=== PATIENT | male | born 1965 | race Caucasian/White ===

== ENCOUNTER 2016-10-22 16:23 | Emergency (ER) | payer OTHER ==
[2016-10-22 16:28] VITALS: TEMP 97
[2016-10-22] MEDS ORDERED: KETOROLAC 60 MG/2 ML VIAL IM STA (17:48)
[2016-10-22] MEDS ORDERED: HYDROmorphone 1 MG/ML 1 ML SYRINGE IM STA (17:48)
--- NOTE | 2016-10-22 18:31 | XR ---
EXAMINATION TYPE: XR KUB DATE OF EXAM: 10/22/2016 COMPARISON: NONE HISTORY: Left flank pain with history of nephrolithiasis. TECHNIQUE: Single frontal upright radiograph was obtained. FINDINGS: Bowel gas obscures the left renal shadow and no left renal calculi are therefore appreciate d. An approximately 7 mm probable right renal calculus is seen at the level of the right L3 transvers e process as well as smaller 5 mm and 4 mm right renal calculi versus overlying bowel contents. Bowel gas pattern is nonobstructive. No gross evidence of organomegaly. Osseous structures appear intact. IMPRESSION: 1. Three probable right renal calculi. 2. Nonvisualization of the left renal shadow due to overlying bowel gas. 3. Nonobstructive bowel gas pattern.
--- NOTE | 2016-10-22 18:32 | ED ---
General Adult HPI - General Chief complaint: Abdominal Pain Stated complaint: Abd Pain Time Seen by Provider: 10/22/16 17:30 Source: patient, RN notes reviewed Mode of arrival: wheelchair Limitations: no limitations - History of Present Illness Initial comments: Patient is a 51-year-old male with significant past medical history for kidney stones, who presents emergency room today with chief complaint of increased flank pain over the last 2 weeks. He does admit the pain has been increasing over the last few days. States that he has seen his family doctor most recently earlier this morning and had some blood work obtained. Patient does admit that he's had multiple stones in the past and this does feel similar. Denies any other complaints or symptoms. Patient denies any recent fever, chills , shortness of breath, chest pain, nausea or vomiting, numbness or tingling, constipation or diarrhea, headaches or visual changes, or any other complaints. - Related Data Home Medications Medication Instructions Recorded Confirmed ALPRAZolam [Xanax] 1 mg PO TID PRN 10/22/16 10/22/16 Tamsulosin [Flomax] 0.4 mg PO DAILY 10/22/16 10/22/16 oxyCODONE-APAP 10-325MG [Percocet 1 tab PO QID PRN 10/22/16 10/22/16 10-325 mg] Previous Rx's Medication Instructions Recorded Ciprofloxacin HCl [Cipro] 500 mg PO Q12HR #20 day 10/22/16 Allergies Allergy/AdvReac Type Severity Reaction Status Date / Time No Known Allergies Allergy Verified 10/22/16 19:10 Review of Systems ROS Statement: Those systems with pertinent positive or pertinent negative responses have been documented in the HPI. ROS Other: All systems not noted in ROS Statement are negative. Past Medical History Additional Past Medical History / Comment(s): kidney stones History of Any Multi-Drug Resistant Organisms: None Reported Additional Past Surgical History / Comment(s): lithotripsy kidney stone removal Past Psychological History: Anxiety Smoking Status: Current every day smoker Past Alcohol Use History: None Reported Past Drug Use History: Marijuana General Exam - General Exam Comments Initial Comments: General: The patient is awake and alert, in no distress, and does not appear acutely ill. Eye: Pupils are equal, round and reactive to light, extra-ocular movements are intact. No nystagmus. There is normal conjunctiva bilaterally. No signs of icterus. Ears, nose, mouth and throat: There are moist mucous membranes and no oral lesions. Neck: The neck is supple, there is no tenderness or JVD. Cardiovascular: There is a regular rate and rhythm. No murmur, rub or gallop is appreciated. Respiratory: Lungs are clear to auscultation, respirations are non-labored, breath sounds are equal. No wheezes, stridor, rales, or rhonchi. Gastrointestinal: Normal. 7. Normal bowel sounds. Soft on palpation. Patient has no tenderness in the abdomen. Mild tenderness in both left and right CVA. No rebound tenderness. No Guarding Musculoskeletal: Normal ROM, no tenderness. Strength 5/5. Sensation intact. Pulses equal bilaterally 2+. Neurological: A&O x 3. CN II-XII intact, There are no obvious motor or sensory deficits. Coordination appears grossly intact. Speech is normal. Skin: Skin is warm and dry and no rashes or lesions are noted. Psychiatric: Cooperative, appropriate mood & affect, normal judgment. Limitations: no limitations Course Vital Signs 10/22/16 16:26 Temperature 97.0 F L Pulse Rate 110 H Respiratory 18 Rate Blood Pressure 132/76 O2 Sat by Pulse 99 Oximetry Medical Decision Making - Medical Decision Making Patient's x-ray reviewed and does show evidence for multiple stones. Results were discussed with the patient. His urinalysis reviewed and does show evidence for possible infection. Patient will be started on antibiotic. He does have pain medication, Flomax at home that he can use for his symptoms. He is advised follow-up the urologist over the next 1-2 days. Advised return if any symptoms increase or worsen or for any other concerns. He states understanding and is in agreement. - Lab Data Lab Results 10/22/16 Range/Units 19:07 Urine Color Yellow Urine Appearance Clear (Clear) Urine pH 5.5 (5.0-8.0) Ur Specific [place] 1.018 (1.001-1.035) Urine Protein Trace H (Negative) Urine Glucose (UA) Negative (Negative) Urine Ketones Negative (Negative) Urine Blood Moderate H (Negative) Urine Nitrite Negative (Negative) Urine Bilirubin Negative (Negative) Urine Urobilinogen <2.0 (<2.0) mg/dL Ur Leukocyte Esterase Moderate H (Negative) Urine RBC 76 H (0-5) /hpf Urine WBC 13 H (0-5) /hpf Calcium Oxalate Crystal Few H (None) /hpf Urine Bacteria Occasional H (None) /hpf Urine Mucus Rare H (None) /hpf Disposition Clinical Impression: Kidney stone Disposition: HOME SELF-CARE Condition: Good Instructions: Kidney Stones (ED) Additional Instructions: Please follow-up the family doctor/urologist over the next 2 days as discussed. Please use antibiotics as prescribed. Please return to emergency room if any symptoms increase worsen or for any other concerns. Prescriptions: Ciprofloxacin HCl [Cipro] 500 mg PO Q12HR #20 day Referrals: Nonstaff,Physician [Primary Care Provider] - 1-2 days Time of Disposition: 19:22
[2016-10-22 19:18] LABS: Appearance,Urine Clear (Clear); Bacteria,Urine Occasional /hpf; Bilirubin,Urine Negative (Negative); Calcium Oxalate Crystals,Urine Few /hpf; Glucose,Urine (UA) Negative (Negative); Ketones,Urine Negative (Negative); Leukocyte Esterase,Urine Moderate (Negative); Mucus,Urine Rare /hpf; Nitrite,Urine Negative (Negative); PH, Urine 5.5 (5.0-8.0); Particle Count 2052; Protein,Urine Trace (Negative); RBC,Urine 76 /hpf (0-5); Specific Gravity,Urine 1.018 (1.001-1.035); UA Billing (MACRO vs. MICRO) MICRO; Urobilinogen,Urine <2.0 mg/dL (<2.0); WBC,Urine 13 /hpf (0-5)
[2016-10-22 19:33] VITALS: BP 144/94; PULSE 72; RESP 16
== END 2016-10-22 19:32 | disposition home or self-care (01) ==
LOC: EC 16:23
DX: N20.0 Calculus of kidney (principal); Z87.442 Personal history of urinary calculi; F17.200 Nicotine dependence, unspecified, uncomplicated; Z79.899 Other long term (current) drug therapy; Z98.890 Other specified postprocedural states
CPT/HCPCS: 99284; 96372 ×2; 81001; 87086; 74000; J1885; J1170